=== PATIENT | female | born 1940 | race Caucasian/White ===

== ENCOUNTER 2017-01-05 09:41 | Inpatient (IN) | payer OTHER, MEDICAID ==
[~2017-01-05] VITALS: Ht 154.9 cm; Wt 69.9 kg
[~2017-01-05 09:41] MED LIST: ASPI-518 PO; HYDR-3927 PO; LISI-186 PO; MECL-127 PO; PIOG30TA10 PO; SIMV40TA5 PO; SITA25TA3 PO
[2017-01-05] MEDS ORDERED: MORPHINE SULFATE 4 MG/ML CPJ (NOT FOR IM USE) IV STA (10:58)
[2017-01-05] MEDS ORDERED: FAMOTIDINE 20MG/2ML VIAL IV STA (10:58)
[2017-01-05 11:28] LABS: BASOPHILS % 0.7 % (0.0-2.0); EOSINOPHILS % 2.1 % (0.0-5.0); HEMOGLOBIN. 7.6 g/dL (12.0-16.0); LYMPHOCYTES % 21.2 % (20.0-50.0); MEAN CORPUSCULAR HEMOGLOBIN 26.3 pg (28.0-32.0); MEAN CORPUSCULAR VOLUME 83.1 fL (81.0-99.0); MEAN PLATELET VOLUME 11.6 fl (7.4-10.4); MONOCYTES % 11.9 % (2.0-8.0); NEUTROPHILS % 64.1 % (40.0-76.0); PLATELET 170 x1000/uL (130-400); RED BLOOD CELL COUNT 2.89 mill/uL (4.2-5.4); RED CELL DISTRIBUTION WIDTH 16.2 % (11.6-14.6)
[2017-01-05 11:30] LABS: CLARITY URINE CLEAR (CLEAR); COLOR URINE YELLOW (YELLOW); GLUCOSE URINE 2+ (NEGATIVE); KETONES URINE NEGATIVE (NEGATIVE); LEUKOCYTE ESTERASE URINE 1+ (NEGATIVE); NITRITE URINE NEGATIVE (NEGATIVE); OCCULT BLOOD URINE NEGATIVE (NEGATIVE); PROTEIN URINE 1+ (NEGATIVE); SPECIFIC GRAVITY URINE 1.013 (1.005-1.030); UROBILINOGEN URINE 0.2 E.U./dL (0.2-1.0)
[2017-01-05 11:32] LABS: CHLORIDE 107 mEq/L (98-107)
[2017-01-05 11:35] LABS: CARBON DIOXIDE 28 mEq/L (21-32)
[2017-01-05 11:49] LABS: INR 1.1; PARTIAL THROMBOPLASTIN TIME 23.3 sec (24.0-34.0); PROTHROMBIN TIME 11.6 sec
[2017-01-05] MEDS ORDERED: MORPHINE SULFATE 1MG/ML 1ML INJ SYR(NEO) IV ONE (13:30)
[2017-01-05] MEDS ORDERED: MORPHINE SULFATE 2 MG/ML CPJ (NOT FOR IM USE) IV NR (13:42)
[2017-01-05] MEDS ORDERED: LEVOFLOXACIN 500MG PREMIX 100 ML IV ONE (15:45)
[2017-01-05] MEDS ORDERED: SODIUM CHLORIDE 0.9% 1,000 ML IV ONE (16:15)
[2017-01-05] MEDS ORDERED: DEXTROSE 50% WATER 50ML SYRINGE IV PRN (18:00)
[2017-01-05 18:15] VITALS: BP 130/65
[2017-01-05 19:30] VITALS: BP 130/65
[2017-01-05 20:00] VITALS: BP 135/67
[2017-01-05 20:40] LABS: T4 FREE 1.08 ng/dL (0.76-1.46)
[2017-01-05] MEDS: BLOOD SUGAR DIAGNOSTIC STRIP TEST SCH (21:15)
[2017-01-05 21:21] LABS: VITAMIN B12 SERUM > 2000 pg/mL (211-911)
[2017-01-05] MEDS: INSULIN LISPRO 100 UNITS/ML SUBCUT SCH (21:56)
[2017-01-05] MEDS: SODIUM CHLORIDE 0.45% 1,000 ML IV SCH (22:34)
[2017-01-06] VITALS: BP 110/55
[2017-01-06] MEDS ORDERED: CEFTRIAXONE 1 G PREMIX 50 ML IV NR
[2017-01-06 04:00] VITALS: BP 120/78
[2017-01-06] MEDS ORDERED: LORAZEPAM 2MG/ML CPJ IV NR (04:00)
[2017-01-06] MEDS: BLOOD SUGAR DIAGNOSTIC STRIP TEST SCH ×4 (06:44→21:22)
[2017-01-06] MEDS: INSULIN LISPRO 100 UNITS/ML SUBCUT SCH ×4 (07:14→21:51)
[2017-01-06] MEDS: SODIUM CHLORIDE 0.45% 1,000 ML IV SCH ×2 (07:19→20:40)
[2017-01-06] MEDS: LORAZEPAM 1MG TABLET PO PRN ×2 (07:19→22:24)
[2017-01-06 08:00] VITALS: BP 116/46
[2017-01-06 12:00] VITALS: BP 157/94
[2017-01-06] MEDS ORDERED: HALOPERIDOL LACTATE 5MG/ML VIAL IM SCH (12:45)
[2017-01-06] MEDS ORDERED: MORPHINE SULFATE 2 MG/ML CPJ (NOT FOR IM USE) IV PRN (15:45)
[2017-01-06 15:53] LABS: BASOPHILS % 0.9 % (0.0-2.0); EOSINOPHILS % 1.7 % (0.0-5.0); HEMATOCRIT. 25.9 % (36.0-48.0); HEMOGLOBIN. 8.2 g/dL (12.0-16.0); LYMPHOCYTES % 22.9 % (20.0-50.0); MEAN CORPUSCULAR HEMOGLOBIN 26.1 pg (28.0-32.0); MEAN CORPUSCULAR VOLUME 82.4 fL (81.0-99.0); MONOCYTES % 14.6 % (2.0-8.0); NEUTROPHILS % 59.9 % (40.0-76.0); PLATELET 224 x1000/uL (130-400); RED BLOOD CELL COUNT 3.14 mill/uL (4.2-5.4); RED CELL DISTRIBUTION WIDTH 15.9 % (11.6-14.6)
[2017-01-06 15:54] LABS: CARBON DIOXIDE 25 mEq/L (21-32); CHLORIDE 106 mEq/L (98-107)
[2017-01-06 16:00] VITALS: BP 135/74
[2017-01-06] MEDS ORDERED: MORPHINE SULFATE 4 MG/ML CPJ (NOT FOR IM USE) IV PRN (17:24)
[2017-01-06] MEDS ORDERED: CEFTRIAXONE 1 G PREMIX 50 ML IV SCH (18:00)
[2017-01-06 20:00] VITALS: BP 136/70
[2017-01-06 21:05] LABS: CLARITY URINE CLEAR (CLEAR); COLOR URINE YELLOW (YELLOW); GLUCOSE URINE 2+ (NEGATIVE); KETONES URINE NEGATIVE (NEGATIVE); LEUKOCYTE ESTERASE URINE 1+ (NEGATIVE); NITRITE URINE NEGATIVE (NEGATIVE); OCCULT BLOOD URINE 1+ (NEGATIVE); PH URINE 7.5 (4.5-8.0); PROTEIN URINE TRACE (NEGATIVE); SPECIFIC GRAVITY URINE 1.011 (1.005-1.030); UROBILINOGEN URINE 0.2 E.U./dL (0.2-1.0)
[2017-01-07] VITALS: BP 124/64
[2017-01-07] MEDS ORDERED: HALOPERIDOL LACTATE 5MG/ML VIAL IM PRN (01:30)
[2017-01-07] MEDS ORDERED: HALOPERIDOL LACTATE 5MG/ML VIAL IM NR (01:30)
[2017-01-07 04:00] VITALS: BP 99/58
[2017-01-07] MEDS: BLOOD SUGAR DIAGNOSTIC STRIP TEST SCH (07:19)
[2017-01-07 08:00] VITALS: BP 135/70
[2017-01-07] MEDS: LORAZEPAM 1MG TABLET PO PRN (11:17)
[2017-01-07 12:00] VITALS: BP 129/64
[2017-01-07 13:02] LABS: MEAN CORPUSCULAR HEMOGLOBIN 26.2 pg (28.0-32.0); MEAN CORPUSCULAR VOLUME 82.3 fL (81.0-99.0); MEAN PLATELET VOLUME 10.2 fl (7.4-10.4); PLATELET 203 x1000/uL (130-400); RED BLOOD CELL COUNT 3.03 mill/uL (4.2-5.4); RED CELL DISTRIBUTION WIDTH 16.2 % (11.6-14.6)
[2017-01-07 13:31] LABS: PLATELET ESTIMATE NORMAL
[2017-01-07 16:00] VITALS: BP 125/61
[2017-01-07 18:06] VITALS: BP 131/85
== END 2017-01-07 19:35 | disposition home or self-care (01) | DRG 689 ==
LOC: ER 09:58 → 6EST 16:02 → ENRESERV 16:22
PROVIDERS: ADMIT Internal Medicine; ATTEND Internal Medicine
DX: N39.0 Urinary tract infection, site not specified (principal); G93.40 Encephalopathy, unspecified; E86.0 Dehydration; E27.8 Other specified disorders of adrenal gland; D50.9 Iron deficiency anemia, unspecified; I10 Essential (primary) hypertension; E78.5 Hyperlipidemia, unspecified; F03.90 Unspecified dementia, unspecified severity, without behavioral disturbance, psychotic disturbance, mood disturbance, and anxiety; E78.00 Pure hypercholesterolemia, unspecified; E11.9 Type 2 diabetes mellitus without complications; Z98.1 Arthrodesis status; Z79.82 Long term (current) use of aspirin; Z79.899 Other long term (current) drug therapy; Z90.49 Acquired absence of other specified parts of digestive tract
CPT/HCPCS: 36415; 70450; 71010; 74176; 80053; 81001; 82607; 82962; 83540; 83550; 83690; 84439; 84443; 85025; 85044; 85610; 85730; 96365; 96375; 96376; 99285; J0696; J1630; J1815; J1956; J2060; J2270; J3490; J7030